=== PATIENT | female | born 1985 | race African-American/Black ===

== ENCOUNTER 2018-08-09 11:00 | Outpatient (RCR) | payer OTHER | END 2018-08-14 | LOC: PT 11:00 | PROVIDERS: ATTEND Specialist | DX: S93.431D Sprain of tibiofibular ligament of right ankle, subsequent encounter (principal); M17.11 Unilateral primary osteoarthritis, right knee; M22.41 Chondromalacia patellae, right knee; M25.561 Pain in right knee; M25.571 Pain in right ankle and joints of right foot; M25.671 Stiffness of right ankle, not elsewhere classified; M62.81 Muscle weakness (generalized) ==

== ENCOUNTER 2018-08-24 09:26 | Outpatient (RCR) | payer OTHER | END 2018-09-14 | LOC: PT 09:26 | PROVIDERS: ATTEND Specialist | DX: S93.431A Sprain of tibiofibular ligament of right ankle, initial encounter (principal); M17.11 Unilateral primary osteoarthritis, right knee; M22.41 Chondromalacia patellae, right knee | CPT/HCPCS: 97139 ==